=== PATIENT | male | born 1955 | race Caucasian/White ===

== ENCOUNTER 2020-01-22 17:40 | Emergency (ER) | payer BC, SELFPAY ==
--- NOTE | 2020-01-22 17:41 | ED.GENADUL_ITS ---
Discharge Plan Disposition Patient Disposition: HOME Condition: Good Discharge Details Chief Complaint: Laceration Clinical Impression: Laceration of scalp Primary Care Provider: None,None ED Provider: Shawna Hardin Home Meds and New Rx's Prescriptions: Continued simvastatin 10 MG tablet 10 mg PO DAILY RF: 0 Discharge Instructions Instructions: Laceration (ED), Skin Adhesive Care (ED) Additional Instructions: Keep wound clean, dry, covered. Tylenol and ibuprofen as needed for discomfort. Please monitor for signs of infection getting redness, warmth, drainage, increased pain, fever/chills. If you develop these or other new/worsening symptoms please seek care urgently once again. Otherwise, please allow the adhesive to come off naturally. Please do not place any ointments on top of the adhesive. You may shower starting tomorrow . Please follow-up with primary care as needed. Tetanus updated today. Discharge Data Discharge Date/Time-TO BE ENTERED AT DEPARTURE: 01/22/20 19:10 Medical Decision Making Patient is a pleasant 64-year-old male presenting today with chief complaint of left-sided scalp lesion. He reports that prior to arrival he walked into the corner of his deck. Suffered laceration. Unknown tetanus status. He denies any loss of consciousness. Denies any headache or visual changes. Eyes any focal weakness. On exam, patient has a Z-shaped laceration approximately 1.5 cm in length. This is not actively bleeding. There is one small area that appears deeper than the rest does not appear to be all the way through the scalp tissue. Remaining wound appears fairly Augusto. Plan to update the patient's tetanus. Patient I discussed her/benefits as well as expected procedural steps of cleansing the wound and closure with adhesive. This is the patient's preferred method. He voiced understanding and wished to proceed. Procedure note: Using standard sterile technique, the wound was copiously irrigated with sterile saline and cleansed with chlorhexidine. Explored to base in a bloodless field no foreign body or debris noted. Wound edges were lying and approximated fashion. Steri-Strips were used to perfectly align the edges of the Z shaped. Adhesive was then applied over this. Patient I discussed wound care in depth. Tetanus was updated. We discussed the signs symptoms of infection when to seek care urgently once again. We did discuss care of ad manpreet. He was given return precautions. All his questions concerns were addressed and he is in agreement with this plan. HPI General Mode of arrival: ambulatory . Date/Time Provider Initiated Documentation: 01/22/20 17:41 . Limitations to Documentation: no limitations . Information obtained by: patient and RN notes reviewed . History of Present Illness 64 year old M presents to the emergency department with the chief complaint of scalp laceration, described as mild, with intensity rated at 1. Quality is described as aching, and is localized to the head. Patient reports no radiation. Patient started experiencing this hour(s) (1) and it has been constant. No relieving factors improve symptom(s), No exacerbating factors reported . Patient notes no other symptoms.. Patient did receive the following treatments prior to arrival, none Related Data Home Medications Medication Instructions Recorded Confirmed simvastatin 10 mg PO DAILY 12/02/13 12/02/13 Allergies Allergy/AdvReac Type Severity Reaction Status Date / Time No Known Allergies Allergy Unverified 01/22/20 17:59 Review of Systems Constitutional Constitutional: Reports as per HPI, Denies chills, Denies fatigue, Denies fever(s) and Denies headache(s) Eyes Eyes: Reports as per HPI, Denies blurry vision, Denies change in vision and Reports photophobia ENT Ears, Nose, Mouth, and Throat: Denies vertigo, Denies headache(s) and Denies neck pain Cardiovascular Cardiovascular: Reports as per HPI, Denies chest pain, Denies lightheadedness and Denies radiating jaw, neck or arm pain Respiratory Respiratory: Reports as per HPI, Denies chest congestion and Denies cough Gastrointestinal Gastrointestinal: Reports as per HPI, Denies abdominal pain, Denies change in bowel habits, Denies nausea and Denies vomiting Genitourinary Genitourinary: Reports system reviewed and no additional complaints, except as documented (denies change in urinary habits) Musculoskeletal Musculoskeletal: Reports as per HPI and Denies neck pain Integumentary/Breasts Skin/Breast: Reports as per HPI Neurologic Neurologic: Reports as per HPI, Denies behavioral changes, Denies confusion, Denies vertigo, Denies headache(s), Denies sensory deficit and Denies p aresthesias Psychiatric Psychiatric: Denies behavioral changes and Denies confusion Endocrine Endocrine: Denies fatigue [facility] Social History Smoking/Tobacco Use Status: Former Tobacco Use Drug use: Never Exam Const General: cooperative, healthy appearing, comfortable, no acute distress and well developed Nutritional Appearance: average body habitus and well nourished Orientation: alert and awake [facility] Head: abnormal to inspection (Laceration as drawn below), no palpable skull fracture, no Mercedes's sign, no contusions, no hematomas, no raccoon eyes and no scalp tenderness Face images: 1. Patient has a 1.5 cm Z shaped incision. At the medialmost corner, there is one area that does appear to be deeper than the rest. The remaining wound is quite superficial. This is not actively bleeding. Surrounding tissue is not swollen, erythematous. There is no discharge. Patient does have dried blood over this area. Wound edges do align well with no tension on the wound. Eyes General: appearance normal, both eyes and all related structures Resp Effort & Inspection: normal respiratory effort, able to speak in complete sen tences and no respiratory distress Cardio Rate: regular rate Rhythm: regular rhythm Skin Trauma: laceration (As drawn above) Neuro General: patient alert and patient awake Cognition: normal cognition Speech: speech normal Gait: normal gait Sensory Exam: no sensory deficits noted Psych Appearance: grossly normal and well kempt Mental Status: mental status grossly normal Speech and Movement: speech and movement normal
[2020-01-22 17:56] VITALS: BP 128/76; PULSE 76; RESP 18; TEMP 36.5; O2SAT 99
== END 2020-01-22 19:10 | disposition home or self-care (01) ==
LOC: ER 18:51
PROVIDERS: Emergency Provider Physician Assistant
DX: S01.01XA Laceration without foreign body of scalp, initial encounter (principal); W22.01XA Walked into wall, initial encounter
CPT/HCPCS: 12001; 90471

== ENCOUNTER 2025-04-24 09:50 | Emergency (ER) | payer BC, SELFPAY ==
[2025-04-24 09:54] VITALS: BP 124/72; PULSE 73; RESP 16; TEMP 36.4; O2SAT 94
[2025-04-24 09:59] VITALS: BP 124/72; PULSE 73; RESP 16; TEMP 36.4; O2SAT 94
--- NOTE | 2025-04-24 10:40 | ED.GENADUL_ITS ---
Discharge Plan Disposition Patient Disposition: Home Condition: Stable Discharge Details Clinical Impression: Corneal abrasion of left eye due to contact lens Primary Care Provider: Davida Mcgovern ED Provider: Yamileth Uribe Home Meds and New Rx's Prescriptions: Continued rosuvastatin 40 mg tablet 40 mg PO DAILY ergocalciferol (vitamin D2) 1,250 mcg (50,000 unit) capsule 1,250 mcg PO QWEEK lorazepam 0.5 mg tablet 0.5 mg PO QHS PRN finasteride 5 mg tablet 5 mg PO DAILY metformin 500 mg tablet extended release 24 hr 500 mg PO DAILY Discharge Instructions Instructions: Corneal Abrasion ED, Foreign Body in Eye ED Additional Instructions: Please use the erythromycin ointment which you were given here 3 times daily for the next 5 to 7 days. Try not to rub your eye. Do not wear contact lenses until symptoms have resolved. Please follow-up with [facility] or [facility] eye care call on Saturday for an appointment to be seen within the next 3 to 5 days. There is a small punctate area of abrasion noted on your exam. You may wear sunglasses or patch or eye with a gauze and some tape if this helps your symptoms. Please take Tylenol or Ibuprofen with food every 4-6 hours as needed for pain and swelling. Follow up with seismometer operator/primary care provider in 3-5 days. Return to ED sooner if any worsening eye pain, visual disturbances, headache, loss of vision or concerns. Referrals: [facility] [Other] - 3 days Referral Note: ER follow up call for appt Clinical Impression: Corneal abrasion of left eye due to contact lens [facility] [Outside] - 5 days Referral Note: ER follow up call for appt Discharge Data Discharge Date/Time-TO BE ENTERED AT DEPARTURE: 04/24/25 11:26 HPI General Mode of arrival: ambulatory . Date/Time Provider Initiated Documentation: 04/24/25 09:59 . Limitations to Documentation: no limitations . Information obtained by: patient, RN notes reviewed and old records reviewed . HPI Narrative: 69-year-old male presents to the ER with chief complaint of foreign body sensation to his left eye after cutting some wood yesterday. He reports that shortly thereafter he was watching some TV and had some irritation to his left eye and was rubbing it. He does have a small corneal abrasion noted which is punctate to the central area of his cornea. Eyes injected and tearful. Denies any headache does wear contacts. He was wearing contacts at the time. He did remove the contact to his left eye prior to arrival. No other uptake in dye noted. Related Data Home Medications ?Medication ?Instructions ?Recorded ?Confirmed ergocalciferol (vitamin D2) 1,250 1,250 mcg PO QWEEK 1 10/09/21 04/24/25 mcg (50,000 unit) capsule finasteride 5 mg tablet 5 mg PO DAILY 08/08/2204/24 lorazepam 0.5 mg tablet 0.5 mg PO QHS PRN 08/08/22 0 04/24/25 metformin 500 mg tablet,extended 500 mg PO DAILY 08/0804/24/25 release 24 hr rosuvastatin 40 mg tablet 40 mg PO DAILY 08/08/2204/03 Allergies Allergy/AdvReac Type Severity Reaction Status Date / Time No Known Allergies Allergy Verified 04/24/25 09:57 General Stated Complaint: EyeProblem ZAHIRA: 4 Review of Systems All systems reviewed & are unremarkable except as noted in HPI and below Constitutional Constitutional: Reports as per HPI and Denies headache(s) Eyes Eyes: Reports as per HPI, Denies eye discharge, Reports irritation, Denies loss of vision, Reports eye pain (eye pain), Reports requires corrective lenses and Denies seeing flashes ENT Ears, Nose, Mouth, and Throat: Denies headache(s) Neurologic Neurologic: Reports as per HPI, Denies headache(s) and Denies loss of vision Exam Eyes General: appearance normal, both eyes and all related structures Alignment and Position: alignment normal and position normal Periorbital: periorbital findings normal Eyelids: eyelids normal Conjunctivae: conjunctival abnormality left conjunctival injection diffuse and subconjunctival hemorrhage (mild inner corner); without discharge Cornea: corneas abnormal on the left fluorescein used, abrasion central and punctate and foreign body (question mid punctate FB); no contact lens present, without diffuse punctate uptake and without dendrites present and fluorescein used Pupils: PERRL, normal by confrontation and accommodation normal EOM: EOM intact bilaterally Direct ophthalmoscopy: normal light reflex Other: Pressure Left tonomotry WNL 10.1 Eyes/upper lids images: 2 1. Round punctate questionable foreign body, Attempted removal with Q-tip and irrigation. Unsuccessful. NO significant uptake in dye. Course Vital Signs Vital signs: Vital Signs Temperature 36.4 C 04/24/25 09:54 Pulse 73 04/24/25 09:54 Respiratory Rate 16 04/24/25 09:54 Blood Pressure 124/72 04/24/25 09:54 Pulse Oximetry 94 04/24/25 09:54 Temperature 36.4 C 04/24/25 09:59 Temperature Source Oral 04/24/25 09:59 Pulse 73 04/24/25 09:59 Respiratory Rate 16 04/24/25 09:59 Blood Pressure 124/72 04/24/25 09:59 Pulse Oximetry 94 04/24/25 09:59 Oxygen Delivery Method Room Air 04/24/25 09:59 Oxygen Flow Rate 0 04/24/25 09:59 Medical Decision Making 69-year-old male presents to the ER with chief complaint of foreign body sensation to his left eye after cutting some wood yesterday. He reports that shortly thereafter he was watching some TV and had some irritation to his left eye and was rubbing it. He does have a small corneal abrasion noted which is punctate to the central area of his cornea. Eyes injected and tearful. Denies any headache does wear contacts. He was wearing contacts at the time. He did remove the contact to his left eye prior to arrival. No other uptake in dye noted. Eye exam performed with Ryan lamp, tetracaine fluorescein and irrigated with eye solution. See HPI and PE, Differential Dx, Corneal abrasion, FB eye, Tonomotry of left eye performed, WNL 10.1. Will place on erythromycin ointment and have patient follow-up with [facility] or should be family eye care he verbalized understanding. Discussed strict return instructions with him. This text was generated using [employer] dictation system, please disregard any oddities of phrase or misspellings. PFSH All Active Problems (Updated 04/24/25 @ 10:42 by Yamileth Uribe NP) Corneal abrasion of left eye due to contact lens (Acute) Skin malignant neoplasm (Acute) BPH (benign prostatic hyperplasia) (Chronic) ADHD (Acute) Leg skin lesion, left (Acute) Medical History History of nephrolithiasis Hypercholesteremia Inguinal hernia, right Insomnia Knee pain, left Obstructive sleep apnea of adult Vitamin D deficiency Surgical History History of colonoscopy (~01/07/14) normal Hx of squamous cell carcinoma excision Social History Smoking/Tobacco Use Status: Former Tobacco Use Smoking risk assessment performed?: Yes Alcohol Intake: current Alcohol Intake frequency: a few times a week Alcohol type: beer Drug use: Occasionally Substance use type: marijuana Do you feel safe at home: Yes Do you feel safe in your relationship?: Yes PAWSS Have you Been Recently Intoxicated or Drunk Within the Last 30 days?: No Have you Ever Experienced Previous Episodes of Alcohol Withdrawal?: No Have you ever Experienced Withdrawal Seizures?: No Have you ever Experienced Delirium Tremens(DT)s?: No Have you ever undergone Alcohol Rehabilitation Treatment (i.e, inpt ot outpatient treatment programs)?: No Have you ever Experienced Blackouts?: No Have you ever Combined Alcohol with other Downers within the last 90 days?: No Have you ever Combined Alcohol with any other Substance of Abuse during the last 90 days?: No Result: 0
[2025-04-24] MEDS: Erythromycin Ophth Oint 3.5 GM TUBE OS (11:00)
[2025-04-24] MEDS: Tetracaine 0.5% 4 ML BTL OP (11:04)
[2025-04-24] MEDS: Balanced Salt Solution 15 ML BTL OP (11:05)
[2025-04-24] MEDS: Fluorescein STRIPS 100/BOX 1 MG OP (11:07)
[2025-04-24 11:21] VITALS: TEMP 36.7
== END 2025-04-24 11:26 | disposition home or self-care (01) ==
LOC: ER 11:24
PROVIDERS: Emergency Provider Registered Nurse Emergency; PCP Physician Assistant Medical
DX: H18.822 Corneal disorder due to contact lens, left eye (principal)
CPT/HCPCS: 99283 ×2